=== PATIENT | male | born 1950 | race Caucasian/White ===

== ENCOUNTER → 2022-05-10 06:16 | Outpatient (CLI) | payer MEDICARE, SELFPAY ==
--- NOTE | 2022-05-10 06:17 | NM_ITS ---
APPROVED REPORT Exam: Nuclear Stress Test Indication: short of breath Patient Location: Outpatient Stress Tech: Irina Smith CO Tech:RACIEL Suero RT(R)(N) Ht: 6 ft 0 in Wt: 270 lbs HR: 78 bpm BP: 125/88 mmHg BSA: 2.42 m2 TID: 1.02 History: short of breath Procedure: Patient received a 0.4 mg of intravenous Lexiscan, resting heart rate 78 bpm, resting blood pressure 125/88 mmHg, with Lexiscan maximum heart rate achived was 93 bpm which is Less than 85 % of the maximum predicted heart rate and blood pressure was 125/88 mmHg. With Lexiscan, patient denied any complaint of chest pain. The patient was unable to lay on his belly for prone images. Electrocardiogram Resting electrocardiogram shows sinus rhythm nonspecific ST-T changes, with Lexiscan there is less than 1.[address] segment depression noted from the baseline EKG. The EKG portion of the Lexiscan is nondiagnostic. Cardiac Stress and Resting SPECT Images: Cardiac Stress and Resting SPECT images were obtained using technetium 99m Myoview 31.2 mCi stress and 10.10 mCi at rest. Gated SPECT analysis of segmental wall motion and calculation of the ejection fraction also done. Cardiac stress and rest SPECT images show reversible ischemia involving the anteroseptal and inferolateral wall, computer derived ejection fraction is 64% with no regional wall motion abnormality, right ventricle is normal size and contractility. Conclusion: 1. The EKG portion of the Lexiscan is nondiagnostic. 2. Scintigraphic evidence of reversible ischemia involving the anteroseptal and inferolateral wall, computer derived ejection fraction is 64% with no regional wall motion abnormality, right ventricle is normal size and contractility. 3. Abnormal Lexiscan Myoview study. Electronically signed by : Pablito Reynolds MD 05/11/2022 09:37:25
--- NOTE | 2022-05-10 06:17 | CA_ITS ---
APPROVED REPORT EXAM: Comprehensive 2D, Doppler, and color-flow Echocardiogram Oil Well Service Operator: Acacia Arevalo RDCS Ht: 6 ft 0 in Wt: 268lbs BSA: 2.41 BP: 143/89 mmHg Indications: soa,abn ekg,obesity,fatigue TDS SECONDARY TO BODY HABITUS DIFFICULT TO IMAGE RIGHT HEART 2D Dimensions LVOT 2.39 cm (M/F) 1.5-2.5 M-Mode Dimensions RVDd 1.48 cm (0.9-2.6) LA Diam 3.32 cm (1.9-4.0) LVDd 4.28 cm (3.5-5.7) Ao Diam 4.73 cm (2.0-3.7) LVDs 2.97 cm (3.5-5.7) IVSd 1.53 cm (0.6-1.1) PWd 1.32 cm (0.6-1.1) EF (Teich) 58.40% FS 30.60% EDV (Teich) 82.20 mL ESV (Teich) 34.20 mL LV Diastology E Decel Time 227.00 (160-240 msec) E/A Ratio 0.7 MED E' 5.30 (< 7 cm/sec) E'/MED E' Ratio 13.36 (>14) LAT E' 7.30 (<10 cm/sec) E/LAT E' Ratio 9.70 (>14) Mitral Valve MV E Max Chidi. 71.00 (40-130 cm/s) MV A Velocity 95.00 (40-130 cm/s) E/A Ratio 0.75 MV Decel. Time 227.00 (160-240 ms) MV PHT 66.00 ms Left Ventricle Left atrium is mildly enlarged, left ventricle is normal size, mild concentric left ventricular hypertrophy, estimated ejection fraction 55% with no regional wall motion abnormality, grade 1 diastolic dysfunction seen without tissue Doppler evidence of raise left atrial pressure. Right Ventricle Right atrium and right ventricle are mildly enlarged with normal contractility. Aortic Valve Aortic valve is minimally thickened and fibrosed there is no aortic stenosis or aortic insufficiency. Mitral Valve Mitral valve grossly normal, there is trace mitral regurgitation. Tricuspid Valve Tricuspid valve grossly normal, there is trace tricuspid regurgitation, tricuspid regurgitation jet velocity is inadequate for calculation of the right ventricular systolic pressure. Pulmonic Valve Pulmonic valve is poorly visualized. Great Vessels Aortic root is normal size. Inferior vena cava is poorly visualized. Pericardium No significant pericardial effusion noted. Conclusion 1. Mild biatrial enlargement, normal left ventricular size, mild concentric left ventricular hypertrophy, estimated ejection fraction 55% with no regional wall motion abnormality, grade 1 diastolic dysfunction seen without tissue Doppler evidence of raise left atrial pressure. 2. Trace mitral and tricuspid regurgitation. 3. No significant pericardial effusion noted. 4. Inferior vena cava is poorly visualized. Electronically signed by : Pablito Reynolds MD 05/10/2022 06:56:48
--- NOTE | 2022-05-10 06:17 | CA_ITS ---
APPROVED REPORT Exam: Pharmacologic Technologist: Irina Smith, Ht: 6 ft 0 in Wt: 268 lbs BSA: 2.41 m2 HR: 77 bpm BP: 125/88 mmHg Rhythm: NSR, right axis deviation, cannot R/O old inferior [place] Medical History Medical History: HTN Medications: Omeprazole,,,,, Irbesartan,,,,, Aspirin,,,,, Metoprolol,,,,, Pravastatin,,,,, Gabapentin,,,,, Allopurinol,,,,, HCTZ,,,,, TAMSULOSIN,,,,, MeLOXICAM,,,,, Potassium,,,,, Sertaline,,,,, Cardiac Risk Factors: HTN Stress Test Details Test: LEXISCAN HR Resting HR: 78 bpm Max Heart Rate (APMHR): 150.141926 bpm Max HR Achieved: 93 bpm Target HR (85% APMHR): 127.094816 bpm % of APMHR: 62.00 Recovery HR: 84 bpm BP Resting BP: 125/88 mmHg Max BP: 125/88 mmHg Recovery BP: 123.0/72.0 mmHg ECG Resting ECG: NSR, right axis deviation, cannot R/O old inferior [place] Clinical Exercise duration: 04:00 min Highest Stage Achieved: Exercise capacity: 1.0 METs Stress ECG Conclusion During lexiscan pt experinced very mild head discomfort. No CP noted. Rare PAC. No significant ST changes. Unremarkable lexiscan stress. Myoview images reported separately. Electronically signed by : Pablito Reynolds MD 05/11/2022 09:34:45
== END ==
PROVIDERS: PCP Family Medicine; Visit Provider Nurse Practitioner
DX: R06.00 Dyspnea, unspecified (principal); R06.01 Orthopnea; R94.31 Abnormal electrocardiogram [ECG] [EKG]; I71.40 Abdominal aortic aneurysm, without rupture, unspecified
CPT/HCPCS: 78452; 93017; 93306; A9502; J2785

== ENCOUNTER → 2022-05-15 07:32 | Outpatient (CLI) | payer MEDICARE, SELFPAY ==
--- NOTE | 2022-05-15 07:32 | CT_ITS ---
FINAL REPORT TECHNIQUE: Postcontrast axial images of the chest were performed in a CTA protocol. The study was performed with techniques to keep radiation dose as low as reasonably achievable, (ALARA). Individual dose reduction techniques using automated exposure control or adjustment of mA and/or kV according to the patient's size were employed. CLINICAL HISTORY: hx of aneurysm, CHEST PAIN FINDINGS: The heart is normal in size. There are densely calcified coronary arteries. No adenopathy is identified. No pleural or pericardial effusion is identified. The thoracic aorta is normal in caliber with no focal aneurysm or dissection identified. No lung infiltrate or mass is identified. The images of the upper abdomen are unremarkable. The gallbladder is not identified. IMPRESSION: No PE or dissection. Densely calcified coronary arteries. Reviewed, Interpreted and Dictated by Bertrand Ellison MD Transcribed by Kiya Neri Authenticated and . [facility]
--- NOTE | 2022-05-15 07:32 | US_ITS ---
FINAL REPORT CLINICAL HISTORY: AAA FINDINGS: Sonographic images were obtained of the abdominal aorta. The abdominal aorta measures up to 1.9 cm in greatest dimensions. The common iliac arteries are within normal limits. IMPRESSION: No evidence of aneurysm. Reviewed, Interpreted and Dictated by Bertrand Ellison MD Transcribed by Sohan Herring Authenticated and [facility]
[2022-05-15 08:58] LABS: Blood Urea Nitrogen 22 mg/dl (9-20); Estimated Glomerular Filt Rate 60 ml/min (>60); GFR (African American) 72 ML/MIN (>60)
== END ==
PROVIDERS: Nurse Practitioner; PCP Family Medicine; Visit Provider Nurse Practitioner Family
DX: I71.40 Abdominal aortic aneurysm, without rupture, unspecified (principal); R06.00 Dyspnea, unspecified; R06.01 Orthopnea; R94.31 Abnormal electrocardiogram [ECG] [EKG]
CPT/HCPCS: 36415; 71275; 76770; 82565; 84520; Q9967

== ENCOUNTER → 2022-05-17 12:02 | Outpatient (CLI) | payer MEDICARE, SELFPAY ==
[2022-05-17 12:42] LABS: Basophils % 0.4 % (0.1-2.0); Eosinophils # 0.6 K/mm3 (0.0-0.4); Eosinophils % 6.1 % (0.1-12.0); Hematocrit 43.6 % (42.0-52.0); Hemoglobin 13.9 g/dL (14.1-18.0); Lymphocytes # 1.9 K/mm3 (0.7-4.5); Lymphocytes % 20.1 % (10-50); Mean Corpuscular HGB Conc 31.9 g/dL (31.8-35.4); Mean Corpuscular Hemoglobin 31.8 pg (27.0-31.2); Mean Corpuscular Volume 99.7 fl (80-94); Mean Platelet Volume 11.2 fl (7.4-10.4); Monocytes # 0.5 K/mm3 (0.1-1.0); Monocytes % 5.3 % (1.7-9.3); Neutrophils # 6.5 K/mm3 (1.8-7.8); Neutrophils % 68.1 % (37.0-80.0); Platelet Count 195 K/mm3 (142-424); Red Blood Count 4.37 M/mm3 (4.60-6.20); Red Cell Distribution Width 14.7 % (11.5-17.5); White Blood Count 9.5 K/mm3 (4.8-10.8)
[2022-05-17 13:15] LABS: Alanine Aminotransferase 20 U/L (12-78); Albumin Level 4.3 g/dl (3.5-5.0); Alkaline Phosphatase 102 U/L (38-126); Anion Gap 14.8 mEq/L (5-15); Aspartate Amino Transferase 29 U/L (17-59); Bilirubin,Direct 0.2 mg/dl (0.0-0.4); Bilirubin,Indirect 0.2 mg/dL (0.0-0.9); Bilirubin,Total 0.4 mg/dl (0.2-1.3); Bilirubin,Unconjugated 0.3 mg/dL (0.0-1.1); Blood Urea Nitrogen 30 mg/dl (9-20); Calcium 9.7 mg/dl (8.4-10.2); Carbon Dioxide 28 mmol/L (22.0-30.0); Chloride 101 mmol/L (98-107); Chol/HDL Ratio 3.7 (1-3.5); Cholesterol 130 mg/dl (140-200); Estimated Glomerular Filt Rate 50 ml/min (>60); GFR (African American) 61 ML/MIN (>60); Glucose 94 mg/dl (74-100); HDL Cholesterol 35 mg/dl (40-60); Potassium 4.8 mmoL/L (3.5-5.1); Sodium 139 mmol/L (136-145); Total Protein,Serum 6.6 g/dl (6.3-8.2); Triglycerides 183 mg/dl (30-150); VLDL Cholesterol 37 mg/dL (0-40)
[2022-05-17 13:26] LABS: Direct LDL Cholesterol 61.91 mg/dL (100-129)
== END ==
PROVIDERS: PCP Family Medicine; Visit Provider Nurse Practitioner
DX: I10 Essential (primary) hypertension (principal); R94.31 Abnormal electrocardiogram [ECG] [EKG]; E78.5 Hyperlipidemia, unspecified
CPT/HCPCS: 36415; 80048; 80061; 80076; 85025

== ENCOUNTER → 2022-06-06 10:17 | Outpatient (CLI) | payer MEDICARE, SELFPAY ==
[2022-06-06 11:23] LABS: Anion Gap 12.6 mEq/L (5-15); Blood Urea Nitrogen 20 mg/dl (9-20); Calcium 9.8 mg/dl (8.4-10.2); Carbon Dioxide 26 mmol/L (22.0-30.0); Chloride 106 mmol/L (98-107); Estimated Glomerular Filt Rate 55 ml/min (>60); GFR (African American) 66 ML/MIN (>60); Glucose 92 mg/dl (74-100); Potassium 4.6 mmoL/L (3.5-5.1); Sodium 140 mmol/L (136-145)
== END ==
PROVIDERS: PCP Family Medicine; Visit Provider Nurse Practitioner Family
DX: E78.5 Hyperlipidemia, unspecified (principal); I10 Essential (primary) hypertension; I50.30 Unspecified diastolic (congestive) heart failure
CPT/HCPCS: 36415; 80048

== ENCOUNTER 2022-07-16 10:56 | Observation (INO) | payer MEDICARE, SELFPAY ==
[2022-07-16] VITALS (17 sets, daily range): BP systolic 86–125; BP diastolic 47–82; PULSE 65–112; RESP 16–20; TEMP 36.8–37; O2SAT 91–97; BMI 35.9; BMI 35.2
--- NOTE | 2022-07-16 07:01 | IR_ITS ---
APPROVED REPORT Patient Location: Outpatient Rugby Union Footballer: RACIEL Reyes RT (R) PROCEDURES Selective coronary angiogram Drug-eluting stent deployment to the proximal LAD Drug-eluting stent deployment to the ostial proximal left main artery in a manner noncontiguous with the LAD stent INDICATION High risk abnormal Myoview, Coronary artery disease, Angina pectoris Informed consent was obtained prior to the procedure. COMPLICATIONS None Estimated Blood Loss: Less than 10 ML TECHNIQUE One percent lidocaine used to anesthetize the right anterior aspect of the wrist. The right radial artery was accessed via the Seldinger technique. A 6 Martiniquais sheath was placed in the right radial artery. 2.5 mg of verapamil, 800 mcg of nitroglycerin, 1mg Lidocaine and 5000 U Heparin were given through the arterial sheath. The papa catheter was also used to perform selective coronary angiography. At the end of the diagnostic angiogram therapeutic heparin was administered giving a therapeutic ACT and an EBU 4 guide catheter was placed in the left main artery followed by a Choice PT extra-support wire down the LAD. A 3 mm x 12 mm balloon was deployed at 20 tiffany in the proximal ID reducing the heavily calcified stenosis. A 4 mm x 15 mm resolute Jhon[place] stent was deployed at 20 tiffany reducing the stenosis. A 5 mm x 12 mm resolute [place] stent was placed in the proximal left main artery however this did not quite cover the ostial segment therefore an additional 5 mm x 12 mm resolute [place] stent was placed proximal to the first 5 mm stent yet still overlapping at this time hanging out into the left coronary cusp. The stent was deployed at 24 tiffany. The balloon was then advanced into the 4 mm stent and deployed at 20 tiffany to post dilate. At the end of the procedure LOKESH-3 flow was present down the LAD and left main artery. The apparatus was removed the sheath was removed and hemostasis was achieved using TR banding patient was transferred to the postop putting in stable addition ANGIOGRAPHIC RESULTS The left main artery Is an ostial 60 to 70% stenosis The left anterior descending artery Has a proximal mild vascular ectasia with a concentric 90% stenosis. The mid segment then has diffuse 20% stenoses with mild vascular ectasia throughout The circumflex artery Nondominant with mild vascular ectasia throughout with no stenosis greater than 10 to 20% The right coronary artery Large and dominant with an ostial 50 to 60% stenosis The JIMENEZ ventriculogram reveals Not performed The left ventricular end-diastolic pressure Not measured IMPRESSION Critical proximal LAD disease as described above with successful stenting reducing the critical disease to 0% with 1 drug-eluting stent Severe ostial left main disease with successful stenting reducing the severe stenosis to 0% with 2 overlapping drug-eluting stents Persistent moderate stenosis in the right coronary PLAN 1. Dual antiplatelet therapy 2. Risk factor modification 3. Cardiac rehabilitation 4. Patient has creatinine of 1.7 therefore should remain in the hospital overnight for IV fluids with a recheck chemistry panel in the morning. He has an increased risk for contrast nephropathy 5. Medical management for the right coronary 6. LDL less than 55 to be achieved with high intensity statin 7. Avoidance of tobacco products Electronically signed by : Leo Oglesby MD 07/16/2022 11:16:10
[2022-07-16 09:12] LABS: Basophils # 0.1 K/mm3 (0-0.2); Basophils % 0.4 % (0.1-2.0); Eosinophils # 0.2 K/mm3 (0.0-0.4); Eosinophils % 1.7 % (0.1-12.0); Hematocrit 39.3 % (42.0-52.0); Hemoglobin 13.4 g/dL (14.1-18.0); Lymphocytes # 0.7 K/mm3 (0.7-4.5); Lymphocytes % 5.8 % (10-50); Mean Corpuscular HGB Conc 33.9 g/dL (31.8-35.4); Mean Corpuscular Hemoglobin 32.3 pg (27.0-31.2); Mean Corpuscular Volume 95.1 fl (80-94); Mean Platelet Volume 9.9 fl (7.4-10.4); Monocytes # 0.4 K/mm3 (0.1-1.0); Monocytes % 3.1 % (1.7-9.3); Neutrophils # 11.2 K/mm3 (1.8-7.8); Platelet Count 224 K/mm3 (142-424); Red Blood Count 4.14 M/mm3 (4.60-6.20); Red Cell Distribution Width 13.5 % (11.5-17.5); White Blood Count 12.6 K/mm3 (4.8-10.8)
[2022-07-16 09:13] LABS: MANUAL DIFFERENTIAL MANUAL DIFFERENTIAL (MANUAL DIFF)
[2022-07-16 09:14] LABS: Chloride 103 mmol/L (98-107); Potassium 4.3 mmoL/L (3.5-5.1); Sodium 137 mmol/L (136-145)
[2022-07-16 09:17] LABS: Anion Gap 15.3 mEq/L (5-15); Blood Urea Nitrogen 25 mg/dl (9-20); Carbon Dioxide 23 mmol/L (22.0-30.0); Creatinine Clearance Estimated 69 mL/min (50-200); Estimated Glomerular Filt Rate 40 ml/min (>60); GFR (African American) 48 ML/MIN (>60)
[2022-07-16 09:18] LABS: Glucose 143 mg/dl (74-100)
[2022-07-16 09:33] LABS: Lymphocytes % 8 % (10-50); Monocytes % 3 % (2-9); Neutrophils % 89 % (42-76); Platelet Estimate Normal; RBC Morphology Normal; Total Cells Counted 100
[2022-07-16 10:56] LABS: CATHL Activated Clotting Time 264 SEC (74-125)
--- NOTE | 2022-07-16 13:52 | PC.NURSE ---
patient arrived at 13:40 by stretcher from label stitcher
--- NOTE | 2022-07-16 14:59 | HMH.PHAINT1 ---
Pharmacy Intervention Comments: Home medications verified via external fill history and list provided by patient. -Alannah Rawls, PharmD Candidate 2022
[2022-07-16 15:19] LABS: Coronavirus 19, PCR Not Detected (NotDetected); Influenza A, PCR Not Detected (NotDetected); Influenza B, PCR Not Detected (NotDetected)
--- NOTE | 2022-07-16 16:49 | EXP.HP ---
History of Present Illness *Admission Date: 07/16/22 *Reason for visit:: RODRIGO, status post left heart cath *History of present illness: 72-year-old male with prolonged shortness of breath, exertional dyspnea (improves at rest), fatigue. Has been noticing this for several months. Denies any chest pain, tightness, pressure. Has also noticed swelling in his feet throughout the course of the day. Dizziness when he first gets up out of bed. Came in for elective heart cath after having an abnormal stress test. Left heart cath performed today with identification of critical proximal LAD disease and severe ostial left main disease. Received a total of 3 stents with stenosis reduction to 0%. Noted to have a creatinine 1.7 over on morning labs. Will admit patient overnight for monitoring, IV fluid hydration, and repeat labs in the morning. [facility] Disclaimer: The information contained in this section may have been updated after the patient was seen, as this information can be updated by other users. Medical History Abdominal aortic aneurysm Abdominal aortic aneurysm (AAA) Abnormal cardiovascular stress test Abnormal electrocardiogram [ECG] [EKG] Atypical angina Coronary artery calcification Gout Hernia HTN (hypertension) Surgical History History of bilateral knee replacement History of cholecystectomy Hx of appendectomy Family History Heart attack Unknown Cancer Mother Social History Smoking Status: Never smoker alcohol intake: never current occupational status: retired Travel in the last 8 weeks: Inside the [place] Review of Systems Review of Systems Review of systems (narrative): Review of systems Meds Home Medications and Allergies Home Medications Medication Instructions Recorded Confirmed Type allopurinol 100 mg tablet 100 mg PO BID Gout 04/26/22 07/16/22 History gabapentin 300 mg capsule 300 mg PO TID Pain 04/26/22 07/16/22 History hydrochlorothiazide 25 mg tablet 25 mg PO DAILY High blood pressure 04/26/22 07/16/22 History irbesartan 300 mg tablet 300 mg PO DAILY High blood pressure 04/26/22 07/16/22 History meloxicam 15 mg tablet 15 mg PO DAILY Pain 04/26/22 07/16/22 History metoprolol succinate 25 mg 25 mg PO DAILY Heart disease 04/26/22 07/16/22 History tablet,extended release 24 hr omeprazole 40 mg capsule,delayed 40 mg PO DAILY Acid reflux 04/26/22 07/16/22 History release potassium chloride 20 mEq 20 meq PO BID Supplement 04/26/22 07/16/22 History tablet,extended release(part/cryst) (Klor-Con M) pravastatin 40 mg tablet 40 mg PO DAILY Cholesterol 04/26/22 07/16/22 History sertraline 100 mg tablet 100 mg PO DAILY Mood 04/26/22 07/16/22 History tamsulosin 0.4 mg capsule 0.4 mg PO DAILY Prostate 04/26/22 07/16/22 History trazodone 100 mg tablet 100 mg PO HS Sleep 04/26/22 07/16/22 History aspirin 81 mg tablet,delayed 81 mg PO DAILY Blood thinner 07/16/22 07/16/22 History release furosemide 40 mg tablet 40 mg PO DAILY Fluid 07/16/22 07/16/22 History New Prescriptions to Start Prescriptions: Allergies Allergy/AdvReac Type Severity Reaction Status Date / Time No Known Allergies Allergy Verified 07/16/22 13:55 Exam Data for Last 24 hours Vital signs and Labs for Last 24 Hours: Temp Pulse Resp BP Pulse Ox 98.2 F 72 19 125/69 94 L 07/16/22 15:56 07/16/22 15:56 07/16/22 15:56 07/16/22 15:56 07/16/22 15:56 Laboratory Results - last 24 hr 07/16/22 08:51: WBC 12.6 H, RBC 4.14 L, Hgb 13.4 L, Hct 39.3 L, MCV 95.1 H, MCH 32.3 H, MCHC 33.9, RDW 13.5, Plt Count 224, MPV 9.9, Neut % (Auto) 89.0 H, Lymph % (Auto) 5.8 L, [place] % (Auto) 3.1, Eos % (Auto) 1.7, Baso % (Auto) 0.4, Neut # (Auto) 11.2 H, Lymph # (Auto) 0.7, [place] # (Auto) 0.4, Eos # (Auto) 0.2
[2022-07-17] VITALS: BP 97/58; PULSE 70; RESP 16; TEMP 36.7; O2SAT 100
[2022-07-17 04:00] VITALS: BP 117/62; PULSE 64; RESP 16; TEMP 36.7; O2SAT 98; BMI 34.9
--- NOTE | 2022-07-17 06:54 | PC.NURSE ---
Pt did not voice any c/o t/o night. Tegaderm to right radial site CDI. Pt ambulating to BR with walker and 1x assist. at bedside. Call light within reach.
--- NOTE | 2022-07-17 07:35 | EXP.PN ---
Subjective *Date: 07/17/22 *Time: 07:35 Interval history: Date of service July 17, 2022 Nursing staff report that the patient remains afebrile with stable vital signs and saturating appropriately on room air. His morning labs are pending. Exam Data for Last 24 hours Vital signs and Labs for Last 24 Hours: Temp Pulse Resp BP Pulse Ox 98.1 F 64 16 117/62 98 07/17/22 04:00 07/17/22 04:00 07/17/22 04:00 07/17/22 04:00 07/17/22 04:00 Laboratory Results - last 24 hr 07/16/22 08:51: WBC 12.6 H, RBC 4.14 L, Hgb 13.4 L, Hct 39.3 L, MCV 95.1 H, MCH 32.3 H, MCHC 33.9, RDW 13.5, Plt Count 224, MPV 9.9, Neut % (Auto) 89.0 H, Lymph % (Auto) 5.8 L, [place] % (Auto) 3.1, Eos % (Auto) 1.7, Baso % (Auto) 0.4, Neut # (Auto) 11.2 H, Lymph # (Auto) 0.7, [place] # (Auto) 0.4, Eos # (Auto) 0.2, Baso # (Auto) 0.1, Total Counted 100, Neutrophils % (Manual) 89 H, Lymphocytes % (Manual) 8 L, Monocytes % (Manual) 3, Platelet Estimate Normal, RBC Morphology Normal 07/16/22 08:51: Sodium 137, Potassium 4.3, Chloride 103, Carbon Dioxide 23, Anion Gap 15.3 H, BUN 25 H, Creatinine 1.70 H, Estimated Creat Clear 69, Estimated GFR 40 L, Est GFR ( Amer) 48 L, Glucose 143 H, Calcium 9.0 07/16/22 11:16: Activated Clotting Time 264 H* 07/16/22 15:00: SARS-CoV-2 (PCR) Not detected, Influenza A Untype (PCR) Not detected, Influenza Type B (PCR) Not detected I & O for Last 24 hours: Intake & Output 07/14/22 07/15/22 07/16/22 07/17/22 23:59 23:59 23:59 23:59 Intake Total 280 / 280 Output Total 304 / 304 0 / 0 Balance -24 / -24 0 / 0 Weight 117.679 kg 117.072 kg Constitutional Constitutional: no acute distress *Routine HEENT Exam Head: Present normocephalic Eye: Present EOMI and PERRL ENT: Present mucous membranes moist *Routine Neck Exam Neck: Present supple; Absent lymphadenopathy *Routine Respiratory Exam Respiratory: Present CTA bilaterally *Routine Cardiovascular Exam Cardiovascular: Present RRR *Routine Abdominal Exam Abdominal: Present soft and normoactive bowel sounds; Absent tenderness *Routine Extremities Exam Extremities: Absent cyanosis, clubbing or edema *Routine Skin Exam Skin: Present warm; Absent rash *Routine Neurological Exam Neurological: Present alert and oriented X3 Assessment and Plan *Assessment and plan (1) RODRIGO (acute kidney injury): Status: Acute Category: Medical Code(s): N17.9 - Acute kidney failure, unspecified (2) Status post left heart catheterization: Status: Acute Category: Medical Code(s): Z98.890 - Other specified postprocedural states (3) Coronary artery calcification: Status: Acute Category: Medical Code(s): I25.10 - Atherosclerotic heart disease of [place] coronary artery without angina pectoris; I25.84 - Coronary atherosclerosis due to calcified coronary lesion (4) HLD (hyperlipidemia): Status: Acute Qualifiers: Hyperlipidemia type: mixed hyperlipidemia Qualified Code(s): E78.2 - Mixed hyperlipidemia Category: Medical Code(s): E78.5 - Hyperlipidemia, unspecified (5) Atypical angina: Status: Acute Category: Medical Code(s): I20.8 - Other forms of angina pectoris (6) HTN (hypertension): Status: Acute Category: Medical Code(s): I10 - Essential (primary) hypertension (7) Diastolic CHF: Status: Acute Qualifiers: Heart failure chronicity: chronic Qualified Code(s): I50.32 - Chronic diastolic (congestive) heart failure Category: Medical Code(s): I50.30 - Unspecified diastolic (congestive) heart failure Plan 72-year-old male with left heart cath today. Noted to have RODRIGO. Admitted to medicine for monitoring overnight. Problems addressed as follows CAD Hypertension HLD -Status post stenting as above. Tolerated procedure well. -Cardiology consulted, appreciate their recommendations. Discussed case with cardiology, patient zack
[2022-07-17 07:47] LABS: Basophils % 0.5 % (0.1-2.0); Eosinophils # 0.4 K/mm3 (0.0-0.4); Eosinophils % 5.5 % (0.1-12.0); Hematocrit 36.3 % (42.0-52.0); Hemoglobin 12.5 g/dL (14.1-18.0); Lymphocytes # 1.7 K/mm3 (0.7-4.5); Lymphocytes % 21.6 % (10-50); Mean Corpuscular HGB Conc 34.5 g/dL (31.8-35.4); Mean Corpuscular Hemoglobin 32.3 pg (27.0-31.2); Mean Corpuscular Volume 93.6 fl (80-94); Mean Platelet Volume 9.8 fl (7.4-10.4); Monocytes # 0.4 K/mm3 (0.1-1.0); Monocytes % 4.5 % (1.7-9.3); Neutrophils # 5.4 K/mm3 (1.8-7.8); Neutrophils % 67.8 % (37.0-80.0); Platelet Count 185 K/mm3 (142-424); Red Blood Count 3.88 M/mm3 (4.60-6.20); Red Cell Distribution Width 13.5 % (11.5-17.5)
[2022-07-17 07:51] LABS: Anion Gap 13.9 mEq/L (5-15); Blood Urea Nitrogen 18 mg/dl (9-20); Calcium 8.8 mg/dl (8.4-10.2); Carbon Dioxide 22 mmol/L (22.0-30.0); Chloride 107 mmol/L (98-107); Creatinine Clearance Estimated 95 mL/min (50-200); Estimated Glomerular Filt Rate 60 ml/min (>60); GFR (African American) 72 ML/MIN (>60); Glucose 91 mg/dl (74-100); Potassium 3.9 mmoL/L (3.5-5.1); Sodium 139 mmol/L (136-145)
[2022-07-17 08:00] VITALS: BP 131/68; PULSE 66; PULSE 87; RESP 18; TEMP 36.7; O2SAT 100
--- NOTE | 2022-07-17 11:16 | DIET.NUTRFU ---
Reviewed cardiac diet handouts prior to discharge. Patient's is present who does the majority of cooking and was concerned about what changes needed to be made to provider during rounds. During instruction indicated patient likes to add salt to his foods and likes biscuits and gravy and other high fat items. RD encouraged patient to space out his high fat items and utilize his sodium allowance of 2000mg throughout the day
--- NOTE | 2022-07-17 11:54 | EXP.DC.SUM ---
General Admission date:: 07/16/22 Discharge date: 07/17/22 HPI HPI HPI: 72-year-old male with prolonged shortness of breath, exertional dyspnea (improves at rest), fatigue. Has been noticing this for several months. Denies any chest pain, tightness, pressure. Has also noticed swelling in his feet throughout the course of the day. Dizziness when he first gets up out of bed. Came in for elective heart cath after having an abnormal stress test. Left heart cath performed today with identification of critical proximal LAD disease and severe ostial left main disease. Received a total of 3 stents with stenosis reduction to 0%. Noted to have a creatinine 1.7 over on morning labs. Will admit patient overnight for monitoring, IV fluid hydration, and repeat labs in the morning. Hospital Course Hospital Course Hospital Course: The patient is admitted to the medical floor with cardiology consultation. He is provided IV fluid resuscitation and ACC guideline directed therapy for his coronary artery disease and recent left heart catheterization with drug-eluting stent deployment. The patient tolerated his IV fluid resuscitation well and his next day creatinine returned to baseline. He identified improvement and inquired about discharge home. We will discharge home with dual antiplatelet therapy, statin therapy and have advised him to discontinue his thiazide diuretic, Mobic anti-inflammatory and follow-up with his PCP Dr. Calzada to have further discussions concerning medication effects on renal function. He is to maintain a blood pressure diary for his PCP to evaluate. 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 Outpatient cardiac rehab has been requested. Exam Data for Last 24 hours Vital signs and Labs for Last 24 Hours: Temp Pulse Resp BP Pulse Ox 98.0 F 87 18 131/68 100 07/17/22 08:00 07/17/22 08:00 07/17/22 08:00 07/17/22 08:00 07/17/22 08:00 Laboratory Results - last 24 hr 07/16/22 15:00: SARS-CoV-2 (PCR) Not detected, Influenza A Untype (PCR) Not detected, Influenza Type B (PCR) Not detected 07/17/22 07:28: Magnesium 2.0 07/17/22 07:28: WBC 8.0 D, RBC 3.88 L, Hgb 12.5 L, Hct 36.3 L, MCV 93.6, MCH 32.3 H, MCHC 34.5, RDW 13.5, Plt Count 185, MPV 9.8, Neut % (Auto) 67.8, Lymph % (Auto) 21.6, [place] % (Auto) 4.5, Eos % (Auto) 5.5, Baso % (Auto) 0.5, Neut # (Auto) 5.4, Lymph # (Auto) 1.7, [place] # (Auto) 0.4, Eos # (Auto) 0.4, Baso # (Auto) 0.0 07/17/22 07:28: Sodium 139, Potassium 3.9, Chloride 107, Carbon Dioxide 22, Anion Gap 13.9, BUN 18 D, Creatinine 1.20 D, Estimated Creat Clear 95, Estimated GFR 60, Est GFR ( Amer) 72 D, Glucose 91 D, Calcium 8.8 I & O for Last 24 hours: Intake & Output 07/14/22 07/15/22 07/16/22 07/17/22 23:59 23:59 23:59 23:59 Intake Total 280 / 280 480 / 480 Output Total 304 / 304 0 / 0 Balance -24 / -24 480 / 480 Weight 117.679 kg 117.072 kg Constitutional Constitutional: no acute distress *Routine HEENT Exam Head: Present normocephalic Eye: Present EOMI and PERRL ENT: Present mucous membranes moist *Routine Neck Exam Neck: Present supple; Absent lymphadenopathy *Routine Respiratory Exam Respiratory: Present CTA bilaterally *Routine Cardiovascular Exam Cardiovascular: Present RRR *Routine Abdominal Exam Abdominal: Present soft and normoactive bowel sounds; Absent tenderness *Routine Extremities Exam Extremities: Absent cyanosis, clubbing or edema *Routine Skin Exam Skin: Present warm; Absent rash *Routine Neurological Exam Neurological: Present alert and oriented X3 Results Data Completed and Pending Labs on day of discharge: Labs from last 24 hours 07/17/22 07/17/22 07/17/22 07:28 07:28 07:28 WBC 8.0 D RBC 3.88 L Hgb 12.5 L Hct 36.3 L MCV 93.6 MCH 32.3 H MCHC 34.5 RDW 13.5 Plt Count 185 MPV 9.8 Neut % (Auto) 67.8 Lymph % (Auto) 21.6 [place] % (Auto) 4.5 Eos % (Auto) 5.5 Baso % (Auto)
--- NOTE | 2022-07-17 12:23 | P.CONPHA_ITS ---
PHA Almond Blancher Operator Discharge Med Forest Products Teacher: Milo Mitchell has received discharge medication counseling on the following medications: BRILINTA 90 MG BID ASPIRIN 81 MG DAILY IRBESARTAN 300 MG DAILY PRAVASTATIN 40 MG HS METOPROLOL SUCCINATE 25 MG DAILY
--- NOTE | 2022-07-18 13:01 | CARE MANAGER ---
Contacted patient's related to hospital discharge. They picked up his Brilinta. However, patient has had increase shortness of breath. He has appointment with PCP in the morning and will discuss with him. Denies any other questions or concerns. PRATIMA Jackson
== END 2022-07-17 12:11 | disposition home or self-care (01) ==
LOC: 2ND 10:57
PROVIDERS: Internal Medicine; Admitting Provider Internal Medicine Adolescent Medicine; PCP Family Medicine; Visit Provider Family Medicine
DX: I25.118 Atherosclerotic heart disease of native coronary artery with other forms of angina pectoris; I25.84 Coronary atherosclerosis due to calcified coronary lesion; R94.39 Abnormal result of other cardiovascular function study; N17.9 Acute kidney failure, unspecified; I11.0 Hypertensive heart disease with heart failure; I50.32 Chronic diastolic (congestive) heart failure; Z79.899 Other long term (current) drug therapy; Z20.822 Contact with and (suspected) exposure to COVID-19
CPT/HCPCS: G0378; 36415; 80048; 83735; 85007; 85025; 85347; 92928; 99152; 99153; C1725; C1769; C1876; C9600; C9803; J1644; Q9967; U0003; U0005

== ENCOUNTER 2022-07-27 12:53 | Observation (INO) | payer MEDICARE, SELFPAY ==
[2022-07-27] VITALS (10 sets, daily range): BP systolic 108–127; BP diastolic 67–92; PULSE 80–117; RESP 17–20; TEMP 36.4–36.7; O2SAT 94–98; BMI 34.3
--- NOTE | 2022-07-27 12:55 | CT_ITS ---
PROCEDURE INFORMATION: Exam: CTA Chest With Contrast Exam date and time: 07/27/2022 4:25 PM Age: 72 years old Clinical indication: Shortness of breath TECHNIQUE: Imaging protocol: Computed tomographic angiography of the chest with contrast. 3D rendering (Not supervised by radiologist): MIP and/or 3D reconstructed images were created by the technologist. Radiation optimization: All CT scans at this facility use at least one of these dose optimization techniques: automated exposure control; mA and/or kV adjustment per patient size (includes targeted exams where dose is matched to clinical indication); or iterative reconstruction. Contrast material: ISOVUE; Contrast volume: 50 ml; Contrast route: INTRAVENOUS (IV); Other protocol: This patient has received [address] and 0 known cardiac nuclear medicine studies in the 12 months prior to the current study. COMPARISON: CT ANGIO CHEST 05/15/2022 9:21 AM FINDINGS: Pulmonary arteries: Pulmonary vasculature is adequately opacified without filling defects or other evidence of acute pulmonary embolism. Aorta: Diffuse atherosclerotic changes with calcification of the thoracic aorta. No aortic aneurysm. Lungs: Lung volumes are chronically decreased likely due to body habitus. Mild hypoventilatory changes in the dependent portion of the lower lung fernandez. 5 mm circumscribed rounded pulmonary nodule right lower lobe, stable. Pleural spaces: Unremarkable. No pneumothorax. No pleural effusion. Heart: Heart is upper limits of normal in size. Extensive calcification of the coronary arteries. No significant pericardial effusion Lymph nodes: Unremarkable. No enlarged lymph nodes. Gallbladder and bile ducts: Small gallstones partially visualized. Kidneys and ureters: Small nonobstructing right renal stones. Bones/joints: Mild-moderate multilevel degenerative changes of the thoracic spine. No acute bony abnormalities. Soft tissues: Unremarkable. IMPRESSION: 1. Negative CT angiogram of the chest. No evidence of acute pulmonary embolism. 2. Extensive calcification of coronary arteries. 3. Chronically decreased lung volumes with mild hypoventilatory changes. 4. 5 mm pulmonary nodule right lower lobe. Recommend low-dose CT chest in 6 months for continued surveillance.
--- NOTE | 2022-07-27 12:57 | CA_ITS ---
APPROVED REPORT EXAM: Comprehensive 2D, Doppler, and color-flow Echocardiogram Global Logistics Analyst: Acacia Arevalo RDCS Ht: 6 ft 0 in Wt: 255lbs BSA: 2.36 BP: 104/75 mmHg Indications: SOA,AF,HTN TDS/TLS UNABLE TO IMAGE RT SIDED HEART 2D Dimensions Aortic Root 4.04 cm M: 3.1 - 3.7 LVOT 2.56 cm (M/F) 1.5-2.5 M-Mode Dimensions RVDd 2.20 cm (0.9-2.6) LA Diam 1.48 cm (1.9-4.0) LVDd 2.96 cm (3.5-5.7) Ao Diam 4.93 cm (2.0-3.7) LVDs 1.93 cm (3.5-5.7) IVSd 1.39 cm (0.6-1.1) PWd 1.57 cm (0.6-1.1) EF (Teich) 65.80% FS 34.80% EDV (Teich) 33.90 mL ESV (Teich) 11.60 mL LV Diastology E Decel Time 150.00 (160-240 msec) E/A Ratio 2.6 MED E' 6.50 (< 7 cm/sec) E'/MED E' Ratio 15.20 (>14) LAT E' 6.80 (<10 cm/sec) E/LAT E' Ratio 14.53 (>14) Mitral Valve MV E Max Chidi. 99.00 (40-130 cm/s) MV A Velocity 38.00 (40-130 cm/s) E/A Ratio 2.60 MV Decel. Time 150.00 (160-240 ms) MV PHT 44.00 ms Left Ventricle Technically difficult study because of the patient factors and poor acoustic windows. Left atrium is mildly enlarged, left ventricle is normal size, mild concentric left ventricular hypertrophy estimated ejection fraction is 55% with no obvious regional wall motion abnormality in the visualized segments. Diastolic parameters are inconclusive. Right Ventricle Right atrium and right ventricle are mildly enlarged with normal contractility. Aortic Valve Aortic valve is minimally thickened and fibrosed there is no aortic stenosis or aortic insufficiency. Mitral Valve Mitral valve leaflets are minimally thickened, there is mild mitral regurgitation. Tricuspid Valve Tricuspid valve is poorly visualized. There is no significant tricuspid regurgitation seen. Pulmonic Valve Pulmonic valve is poorly visualized. Great Vessels Aortic root and ascending aorta is qualitatively enlarged. Inferior vena cava is not visualized. Pericardium No significant pericardial effusion noted. Conclusion 1. Technically difficult study because of the patient factors and poor acoustic windows. 2. Biatrial enlargement, normal left ventricular size, estimated ejection fraction 55% with no obvious regional wall motion abnormality in the visualized segments. Diastolic parameters are inconclusive. 3. Mildly enlarged right ventricle with normal contractility. 4. Mild mitral regurgitation. 5. Ascending aorta and aortic root is enlarged, if clinically indicated CT scan of the chest is recommended with contrast to exclude presence of thoracic aneurysm. 6. No significant pericardial effusion noted. 7. Inferior vena cava is poorly visualized. Electronically signed by : Pablito Reynolds MD 07/27/2022 16:37:03
--- NOTE | 2022-07-27 13:11 | EXP.CARD.CON ---
History of Present Illness History of Present Illness Consult date: 07/27/22 Requesting physician: Bimal Jolley Consult reason: shortness of breath and hypotension Chief complaint: Shortness of air, hypotension Additional Medical History:: Significant past medical history Coronary artery disease-SAGRARIO to proximal LAD and ostial left main. Persistent moderate stenosis in RCA Hypertension AAA Hyperlipidemia Former smoker Recent RODRIGO-resolved Echo 05/2022 Conclusion 1.? Mild biatrial enlargement, normal left ventricular size, mild concentric left ventricular hypertrophy, estimated ejection fraction 55% with no regional wall motion abnormality, grade 1 diastolic dysfunction seen without tissue Doppler evidence of raise left atrial pressure. 2.? Trace mitral and tricuspid regurgitation. 3.? No significant pericardial effusion noted. 4.? Inferior vena cava is poorly visualized. Left heart cath 07/2022 IMPRESSION Critical proximal LAD disease as described above with successful stenting reducing the critical disease to 0% with 1 drug-eluting stent Severe ostial left main disease with successful stenting reducing the severe stenosis to 0% with 2 overlapping drug-eluting stents Persistent moderate stenosis in the right coronary PLAN 1. Dual antiplatelet therapy 2. Risk factor modification 3. Cardiac rehabilitation 4. Patient has creatinine of 1.7 therefore should remain in the hospital overnight for IV fluids with a recheck chemistry panel in the morning.? He has an increased risk for contrast nephropathy 5. Medical management for the right coronary 6. LDL less than 55 to be achieved with high intensity statin 7. Avoidance of tobacco products History of present illness: 72-year-old white male presented to cardiology office with complaints of increased shortness of breath for 2 to 3 days and low blood pressure. Patient had left heart cath on 07/16/2022 receiving SAGRARIO to proximal LAD and ostial left main. Persistent moderate stenosis in RCA was noted. reports patient was doing well after [facility] until Saturday when she noticed BP was running low with systolic being 117s. She got concerned so she called the cards office 2 days ago reporting low blood pressure readings and was advised to hold diuretics and blood pressure medication. She held metoprolol, irbesartan, and hctz. reports blood pressures continued to run on the low side and that patient became shortness of breath prompting office visit today. Upon presentation to cardiology office EKG shows sinus tach at a rate of 128. Patient denies any LE edema, orthopnea. Reports dry cough. Denies fever or chills. Patient was admitted for further evaluation. [facility] Disclaimer: The information contained in this section may have been updated after the patient was seen, as this information can be updated by other users. Medical History Abdominal aortic aneurysm Abdominal aortic aneurysm (AAA) Abnormal cardiovascular stress test Abnormal electrocardiogram [ECG] [EKG] RODRIGO (acute kidney injury) Atypical angina Coronary artery calcification Gout Hernia HTN (hypertension) Surgical History History of bilateral knee replacement History of cholecystectomy Hx of appendectomy Family History Mother Cancer Unknown Heart attack Social History (Updated 07/27/22 @ 13:49 by Jimena Padron, RN) Smoking Status: Never smoker alcohol intake: never current occupational status: retired Travel in the last 8 weeks: Inside the [place] Review of Systems Review of Systems Review of systems:: pertinent systems reviewed and negative unless documented below Constitutional Constitutional: Reports system reviewed and no additional complaints, except as documented *Cardiovascular Cardiovascular: Reports system reviewed and no add
[2022-07-27 13:31] LABS: Basophils # 0.1 K/mm3 (0-0.2); Basophils % 0.5 % (0.1-2.0); Eosinophils # 0.3 K/mm3 (0.0-0.4); Eosinophils % 2.5 % (0.1-12.0); Hematocrit 48.2 % (42.0-52.0); Lymphocytes # 1.6 K/mm3 (0.7-4.5); Lymphocytes % 13.9 % (10-50); Mean Corpuscular HGB Conc 33.1 g/dL (31.8-35.4); Mean Corpuscular Hemoglobin 32.5 pg (27.0-31.2); Mean Platelet Volume 10.5 fl (7.4-10.4); Monocytes # 0.7 K/mm3 (0.1-1.0); Monocytes % 5.8 % (1.7-9.3); Neutrophils % 77.2 % (37.0-80.0); Platelet Count 209 K/mm3 (142-424); Red Blood Count 4.92 M/mm3 (4.60-6.20); Red Cell Distribution Width 13.6 % (11.5-17.5); White Blood Count 11.7 K/mm3 (4.8-10.8)
[2022-07-27 13:36] LABS: Chloride 101 mmol/L (98-107); Potassium 4.4 mmoL/L (3.5-5.1); Sodium 139 mmol/L (136-145)
[2022-07-27 13:39] LABS: Alanine Aminotransferase 57 U/L (12-78); Albumin Level 5.2 g/dl (3.5-5.0); Albumin/Globulin Ratio 1.4 (1.1-1.8); Alkaline Phosphatase 226 U/L (38-126); Anion Gap 23.4 mEq/L (5-15); Aspartate Amino Transferase 44 U/L (17-59); Bilirubin,Total 1.2 mg/dl (0.2-1.3); Blood Urea Nitrogen 39 mg/dl (9-20); Calcium 10.3 mg/dl (8.4-10.2); Carbon Dioxide 19 mmol/L (22.0-30.0); Creatinine Clearance Estimated 56 mL/min (50-200); Estimated Glomerular Filt Rate 33 ml/min (>60); GFR (African American) 40 ML/MIN (>60); Globulin 3.8 g/dL (1.3-3.2); Glucose 144 mg/dl (74-100)
[2022-07-27 13:40] LABS: Magnesium 2.2 mg/dl (1.6-2.3)
--- NOTE | 2022-07-27 13:41 | EXP.HP ---
History of Present Illness *Admission Date: 07/27/22 *Reason for visit:: dyspnea, tachycardia, rodrigo *History of present illness: Mr. Stephen hidalgo 72-year-old gentleman who initially presented to cardiology office today with complaint of worsening shortness of breath for the past few days. He also has been having lower blood pressure for the past 2 to 3 days for which his blood pressure regimen was held at home. Of note, had a heart cath on 07/16 with drug-eluting stents to the proximal LAD and ostial left main. Patient denies chest pain but has been having a persistent dry cough for over a week now. Denies nausea, vomiting, diarrhea, confusion. Appears uncomfortable. presents with him today. Reports that blood pressures have been running low at home, systolics in the 100-110s. Additionally he is noted a fast heart rate for the past few days. Out of concern for possible worsening heart failure, respiratory infection, PE, cardiology consulted medicine for admission. Patient directly admitted to the hospital. On evaluation after arriving to the floor, patient is noted to have dry cough, and appear dyspneic. He is in sinus tach with a rate of approximately 115. He denies any lower extremity edema, orthopnea, bruising or bleeding. [facility] Disclaimer: The information contained in this section may have been updated after the patient was seen, as this information can be updated by other users. Medical History Abdominal aortic aneurysm Abdominal aortic aneurysm (AAA) Abnormal cardiovascular stress test Abnormal electrocardiogram [ECG] [EKG] RODRIGO (acute kidney injury) Atypical angina Coronary artery calcification Gout Hernia HTN (hypertension) Surgical History History of bilateral knee replacement History of cholecystectomy Hx of appendectomy Family History Heart attack Unknown Cancer Mother Social History Smoking Status: Never smoker alcohol intake: never current occupational status: retired Travel in the last 8 weeks: Inside the [place] Review of Systems Review of Systems Review of systems (narrative): 14 point review of systems performed, pertinent positives and negatives as per HPI *Neurologic Neurologic: Reports system reviewed and no additional complaints, except as documented and Denies confusion Psychiatric Psychiatric: Denies confusion Meds Home Medications and Allergies Home Medications Medication Instructions Recorded Confirmed Type allopurinol 100 mg tablet 100 mg PO BID Gout 04/26/22 07/27/22 History gabapentin 300 mg capsule 300 mg PO TID NEUROPATHY 04/26/22 07/27/22 History omeprazole 40 mg capsule,delayed 40 mg PO DAILY Acid reflux 04/26/22 07/27/22 History release potassium chloride 20 mEq 20 meq PO BID Supplement 04/26/22 07/27/22 History tablet,extended release(part/cryst) (Klor-Con M) pravastatin 40 mg tablet 40 mg PO HS Cholesterol 04/26/22 07/27/22 History sertraline 100 mg tablet 100 mg PO DAILY Mood 04/26/22 07/27/22 History tamsulosin 0.4 mg capsule 0.4 mg PO HS Prostate 04/26/22 07/27/22 History trazodone 100 mg tablet 100 - 200 mg PO HS Sleep 04/26/22 07/27/22 History aspirin 81 mg chewable tablet 81 mg PO DAILY CAD 07/27/22 07/27/22 History furosemide 40 mg tablet 40 mg PO DAILY Fluid 07/27/22 07/27/22 History irbesartan 300 mg tablet 300 mg PO DAILY High blood pressure 07/27/22 07/27/22 History metoprolol succinate 25 mg 25 mg PO DAILY High blood pressure 07/27/22 07/27/22 History tablet,extended release 24 hr omega-3 fatty acids-vitamin E 1 cap PO TID CAD 07/27/22 07/27/22 History 1,000 mg capsule ticagrelor 90 mg tablet (Brilinta) 90 mg PO BID Blood thinner 07/27/22 07/27/22 History New Prescriptions to Start Prescriptions: Allergies A
[2022-07-27 13:42] LABS: INR 1.06 (0.9-1.1); Prothrombin Time 11.4 seconds (10.1-12.5)
--- NOTE | 2022-07-27 13:45 | HMH.PHAINT1 ---
Pharmacy Intervention Comments: MEDICATION RECONCILIATION COMPLETE USING RX BOTTLES, EXTERNAL PHARMACY FILL HISTORY, AND LIST FROM RECENT HOSPITAL DISCHARGE.
[2022-07-27 13:47] LABS: Adenovirus,PCR Not Detected (NotDetected); Bordetella Pertussis Not Detected (NotDetected); Chlamydophila Pneumoniae, PCR Not Detected (NotDetected); Coronavirus 19, PCR Not Detected (NotDetected); Coronavirus 229E Not Detected (NotDetected); Coronavirus NL63 Not Detected (NotDetected); Coronavirus OC43 Not Detected (NotDetected); Coronovirus HKU1,PCR Not Detected (NotDetected); Human Metapneumovirus Not Detected (NotDetected); Influenza A, PCR Not Detected (NotDetected); Influenza AH1, 2009 Not Detected (NotDetected); Influenza AH1, PCR Not Detected (NotDetected); Influenza AH3,PCR Not Detected (NotDetected); Influenza B, PCR Not Detected (NotDetected); Mycoplasma Pneumoniae, PCR Not Detected (NotDetected); Parainfluenza 1, PCR Not Detected (NotDetected); Parainfluenza 2, PCR Not Detected (NotDetected); Parainfluenza 3, PCR Not Detected (NotDetected); Parainfluenza 4, PCR Not Detected (NotDetected); Respiratory Syncytial Virus Not Detected (NotDetected); Rhinovirus/Enterovirus Not Detected (NotDetected)
[2022-07-27 13:54] LABS: Troponin I < 0.01 ng/ml (0.00-0.034)
[2022-07-27 14:24] LABS: Free T4 (Free Thyroxine) 1.51 ng/dl (0.78-2.19)
[2022-07-27 14:55] LABS: D-Dimer 1.17 ug/mL (0.0-0.5)
--- NOTE | 2022-07-27 14:56 | PC.NURSE ---
PT ARRIVED TO FLOOR VIA WHEELCHAIR @13:00
[2022-07-27 16:12] LABS: NT Pro Brain Natriuretic Pep. 245 pg/mL (0-125)
--- NOTE | 2022-07-27 18:21 | PC.NURSE ---
pt has remained on room air since arriving to floor, O2 sats 94-98%, SBP 114-127, HR 108 on arrival to floor, 80-99 since that time, no complaints of pain, has complained of dry cough
--- NOTE | 2022-07-27 20:00 | PC.NURSE ---
Rounded on pt at this time. Pt was in bathroom. at bedside states no needs at this time.
[2022-07-28] VITALS (10 sets, daily range): BP systolic 83–110; BP diastolic 62–75; PULSE 70–93; RESP 16–18; TEMP 36.6–37; O2SAT 95–98; BMI 35.2
[2022-07-28 08:42] LABS: Chloride 104 mmol/L (98-107); Potassium 3.9 mmoL/L (3.5-5.1); Sodium 138 mmol/L (136-145)
[2022-07-28 08:44] LABS: Basophils # 0.1 K/mm3 (0-0.2); Basophils % 1.2 % (0.1-2.0); Eosinophils # 0.3 K/mm3 (0.0-0.4); Eosinophils % 3.1 % (0.1-12.0); Hematocrit 42.2 % (42.0-52.0); Lymphocytes # 2.2 K/mm3 (0.7-4.5); Mean Corpuscular Hemoglobin 31.8 pg (27.0-31.2); Mean Corpuscular Volume 96.2 fl (80-94); Mean Platelet Volume 11.3 fl (7.4-10.4); Monocytes # 0.4 K/mm3 (0.1-1.0); Monocytes % 5.3 % (1.7-9.3); Neutrophils # 5.3 K/mm3 (1.8-7.8); Neutrophils % 64.4 % (37.0-80.0); Platelet Count 191 K/mm3 (142-424); Red Blood Count 4.38 M/mm3 (4.60-6.20); Red Cell Distribution Width 13.6 % (11.5-17.5); White Blood Count 8.3 K/mm3 (4.8-10.8)
[2022-07-28 08:45] LABS: Alanine Aminotransferase 36 U/L (12-78); Albumin Level 4.4 g/dl (3.5-5.0); Albumin/Globulin Ratio 1.5 (1.1-1.8); Alkaline Phosphatase 170 U/L (38-126); Anion Gap 14.9 mEq/L (5-15); Aspartate Amino Transferase 32 U/L (17-59); Bilirubin,Total 0.9 mg/dl (0.2-1.3); Blood Urea Nitrogen 35 mg/dl (9-20); Calcium 9.4 mg/dl (8.4-10.2); Carbon Dioxide 23 mmol/L (22.0-30.0); Creatinine Clearance Estimated 77 mL/min (50-200); Estimated Glomerular Filt Rate 46 ml/min (>60); GFR (African American) 56 ML/MIN (>60); Glucose 108 mg/dl (74-100); Total Protein,Serum 7.4 g/dl (6.3-8.2)
--- NOTE | 2022-07-28 11:25 | EXP.ACUTE.PN ---
Subjective *Date: 07/28/22 *Time: 11:25 Interval history: Subjective and met in shortness of breath this morning per patient's report. Slight improvement in cough. No nausea, chest pain, confusion, headache, diarrhea. Cough nonproductive. Stable on room air. Blood pressure still soft this morning. Heart rate better controlled in the 80s after receiving metoprolol last night. Labs showing improvement in creatinine. Tolerating p.o. intake. Medical Exam Vital signs and Labs for Last 24 Hours: Vital Signs Temp Pulse Pulse Resp BP Pulse Ox 07/28/22 11:08 98.6 F 87 17 110/62 95 07/28/22 08:00 93 H 07/28/22 07:23 97.9 F 85 17 91/66 L 98 07/28/22 04:00 70 07/28/22 03:27 98.0 F 86 16 83/63 L 96 07/28/22 00:00 70 07/27/22 23:55 98.0 F 95 H 18 108/67 L 94 L 07/27/22 19:46 83 07/27/22 19:38 97.6 F 82 18 115/70 97 07/27/22 18:00 82 17 114/68 94 L 07/27/22 17:00 87 18 122/83 95 07/27/22 16:00 80 18 117/85 98 07/27/22 15:00 99 H 20 127/92 H 97 07/27/22 16:00 82 07/27/22 16:00 97.9 F 07/27/22 13:10 117 H 07/27/22 14:26 108 H 97 07/27/22 13:19 97.9 F 108 H 20 126/89 97 Intake and Output 07/27/22 07/28/22 07/28/22 23:59 07:59 15:59 Intake Total 1120 / 1120 120 / 120 Output Total 0 / 0 0 / 0 Balance 1120 / 1120 120 / 120 0 / 120 Intake: Intake, Oral Amount 120 / 120 120 / 120 Intake, Total IV Amount 1000 / 1000 Ringers Solution,Lactated 1,000 1000 / 1000 ml @ 250 mls/hr IV .Q4H [facility] Rx #:[id number] Output: Output, Urine Amount 0 / 0 0 / 0 Other: Number of Unmeasured Voids 1 1 Weight 118.132 kg Patient Weight 07/28/22 23:59 Weight 118.132 kg Laboratory Results - last 24 hr 07/27/22 13:15: Chlamy pneumoniae PCR Not detected, Adenovirus (PCR) Not detected, B. pertussis DNA (PCR) Not detected, Coronavirus OC43 (PCR) Not detected, Coronavirus HKU1 (PCR) Not detected, Coronavirus 229E (PCR) Not detected, SARS-CoV-2 (PCR) Not detected, Coronavirus NL63 (PCR) Not detected, Human Metapneumovir PCR Not detected, Influenza A (H1) PCR Not detected, Influ A (H1N1/09) PCR Not detected, Influenza A (H3) PCR Not detected, Influenza Type A (PCR) Not detected, Influenza Type B (PCR) Not detected, M. pneumoniae (PCR) Not detected, Parainfluenza 1 (PCR) Not detected, Parainfluenza 2 (PCR) Not detected, Parainfluenza 3 (PCR) Not detected, Parainfluenza 4 (PCR) Not detected, RSV (PCR) Not detected, Entero/Rhino (PCR) Not detected 07/27/22 13:18: WBC 11.7 H, RBC 4.92, Hgb 16.0, Hct 48.2, MCV 98.0 H, MCH 32.5 H, MCHC 33.1, RDW 13.6, Plt Count 209, MPV 10.5 H, Neut % (Auto) 77.2, Lymph % (Auto) 13.9, [place] % (Auto) 5.8, Eos % (Auto) 2.5, Baso % (Auto) 0.5, Neut # (Auto) 9.0 H, Lymph # (Auto) 1.6, [place] # (Auto) 0.7, Eos # (Auto) 0.3, Baso # (Auto) 0.1 07/27/22 13:18: PT 11.4, INR 1.06 07/27/22 13:18: Sodium 139, Potassium 4.4, Chloride 101, Carbon Dioxide 19 L, Anion Gap 23.4 H, BUN 39 H, Creatinine 2.00 H, Estimated Creat Clear 56, Estimated GFR 33 L, Est GFR ( Amer) 40 L, Glucose 144 H, Calcium 10.3 H, Magnesium 2.2, Total Bilirubin 1.2, AST 44, ALT 57, Alkaline Phosphatase 226 H, Total Protein 9.0 H D, Albumin 5.2 H, Globulin 3.8 H, Albumin/Globulin Ratio 1.4, TSH 5.60 H 07/27/22 13:18: Free T4 1.51 07/27/22 13:18: Troponin I < 0.01 07/27/22 13:18: D-Dimer 1.17 H 07/27/22 13:18: NT-Pro-B Natriuret Pep 245 H 07/28/22 08:20: WBC 8.3 D, RBC 4.38 L, Hgb 14.0 L D, Hct 42.2, MCV 96.2 H, MCH 31.8 H, MCHC 33.0, RDW 13.6, Plt Count 191, MPV 11.3 H, Neut % (Auto) 64.4, Lymph % (Auto) 26.0, [place] % (Auto) 5.3, Eos % (Auto) 3.1, Baso % (Auto) 1.2, Neut # (Auto) 5.3, Lymph # (Auto) 2.2, [place] # (Auto) 0.4, Eos # (Auto) 0.3, Baso # (Auto) 0.1 07/28/22 08:20: Sodium 138, Potassium 3.9, Chloride 104, Carbon Dioxide 23, Anion Gap 14.9, BUN 35 H, Creatinine 1.50 H D, Estimated Creat Clear 77, Estimated GFR 46
[2022-07-29] VITALS: BP 109/58; PULSE 70; PULSE 80; RESP 17; TEMP 37; O2SAT 98
[2022-07-29 03:37] VITALS: BP 121/80; PULSE 72; RESP 18; TEMP 36.7; O2SAT 96
[2022-07-29 03:46] VITALS: BMI 34.3
[2022-07-29 04:00] VITALS: PULSE 63
--- NOTE | 2022-07-29 05:37 | PC.NURSE ---
pt has rested well through the night. no compaints. a&ox4. stable on room air. VSS. LR@125.
--- NOTE | 2022-07-29 07:19 | EXP.DC.SUM ---
General Admission date:: 07/27/22 Discharge date: 07/29/22 HPI HPI HPI: Mr. Stephen hidalgo 72-year-old gentleman who initially presented to cardiology office today with complaint of worsening shortness of breath for the past few days. He also has been having lower blood pressure for the past 2 to 3 days for which his blood pressure regimen was held at home. Of note, had a heart cath on 07/16 with drug-eluting stents to the proximal LAD and ostial left main. Patient denies chest pain but has been having a persistent dry cough for over a week now. Denies nausea, vomiting, diarrhea, confusion. Appears uncomfortable. presents with him today. Reports that blood pressures have been running low at home, systolics in the 100-110s. Additionally he is noted a fast heart rate for the past few days. Out of concern for possible worsening heart failure, respiratory infection, PE, cardiology consulted medicine for admission. Patient directly admitted to the hospital. On evaluation after arriving to the floor, patient is noted to have dry cough, and appear dyspneic. He is in sinus tach with a rate of approximately 115. He denies any lower extremity edema, orthopnea, bruising or bleeding. Hospital Course Hospital Course Hospital Course: 72-year-old male with recent heart cath 11 days ago, presents with worsening shortness of breath and dry cough.? Accompanied by tachycardia and hypotension.? Admitted for work-up, initial findings on labs with RODRIGO and elevated D-dimer.? Further work-up pending.? Problems addressed as follows: Tachycardia CAD Status post left heart cath Hypertension HFpEF -Cardiology consulted, appreciate their recommendations.? Echo obtained showing preserved ejection fraction of 55%. Inconclusive diastolic parameters. CTA was negative for PE. No pneumonia or concern for infection on admission. Rehydrated patient due to RODRIGO. Held his diuretics and irbesartan. Resumed metoprolol when blood pressure improved. Suspect shortness of breath secondary to medication side effect. Discontinued his Brilinta, transitioned to Plavix with a 600 mg load followed by 75 mg daily. Shortness of breath improving on day of discharge. Plan to continue aspirin, metoprolol. Hold HCTZ, Lasix, irbesartan. -Patient is close follow-up with cardiology on Saturday of this week. Establishing with PT on for cardiac rehab. Keep follow-up appointments for further management. Overall clinically improved meeting criteria for discharge home. RODRIGO -Noted on initial labs with creatinine of 2.0. Improved with fluid hydration. Return to baseline at 1.1 on day of discharge. Given his RODRIGO, normotensive blood pressure, held ARB at discharge. Has close follow-up with cardiology, recommend reevaluation at that time. Cough Dyspnea -Negative for viral URI, no pneumonia on imaging, no PE, Low concern for CHF exacerbation.? At this time suspect cough and dyspnea is medication side effect from Brilinta. -Comprehensive respiratory panel obtained, negative for all analytes -Oxygen saturations appropriate at this time on room air, goal saturation greater 90%, will supplement with nasal cannula oxygen if needed Neuropathy: Patient no longer taking gabapentin. Pain stable. BPH: Continue home tamsulosin Gout: Continue home allopurinol Hyperlipidemia: Continue statin, goal LDL less than 55 Exam Data for Last 24 hours Vital signs and Labs for Last 24 Hours: Temp Pulse Resp BP Pulse Ox 98.0 F 63 18 121/80 96 07/29/22 03:37 07/29/22 04:00 07/29/22 03:37 07/29/22 03:37 07/29/22 03:37 Laboratory Results - last 24 hr 07/28/22 08:20: WBC 8.3 D, RBC 4.38 L, Hgb 14.0 L D, Hct 42.2, MCV 96.2 H, MCH 31.8 H, MCHC 33.0, RDW 13.6, Plt Count 191, MPV 11.3 H, Neut % (Auto) 64.4, Lymph % (Auto) 26.0, [place] % (Auto) 5.3, Eos % (Auto) 3.1, Baso % (Auto) 1.2, Neut # (Auto) 5.3, Lymph # (Auto) 2.2, [place] # (Auto) 0.4, Eos # (Auto) 0.3, Baso # (Auto) 0.1
[2022-07-29 07:27] VITALS: BP 107/76; PULSE 73; RESP 17; TEMP 36.6; O2SAT 95
[2022-07-29 07:42] LABS: Alanine Aminotransferase 119 U/L (12-78); Albumin Level 3.5 g/dl (3.5-5.0); Albumin/Globulin Ratio 1.4 (1.1-1.8); Alkaline Phosphatase 180 U/L (38-126); Anion Gap 11.6 mEq/L (5-15); Aspartate Amino Transferase 111 U/L (17-59); Bilirubin,Total 0.9 mg/dl (0.2-1.3); Blood Urea Nitrogen 24 mg/dl (9-20); Calcium 8.4 mg/dl (8.4-10.2); Carbon Dioxide 23 mmol/L (22.0-30.0); Chloride 105 mmol/L (98-107); Creatinine Clearance Estimated 102 mL/min (50-200); Estimated Glomerular Filt Rate 66 ml/min (>60); GFR (African American) 80 ML/MIN (>60); Globulin 2.5 g/dL (1.3-3.2); Glucose 94 mg/dl (74-100); Magnesium 1.7 mg/dl (1.6-2.3); Potassium 3.6 mmoL/L (3.5-5.1); Sodium 136 mmol/L (136-145)
[2022-07-29 08:00] VITALS: PULSE 73
[2022-07-29 08:01] LABS: Basophils % 0.3 % (0.1-2.0); Eosinophils # 0.3 K/mm3 (0.0-0.4); Hematocrit 35.8 % (42.0-52.0); Lymphocytes # 1.1 K/mm3 (0.7-4.5); Lymphocytes % 16.1 % (10-50); Mean Corpuscular HGB Conc 33.7 g/dL (31.8-35.4); Mean Corpuscular Hemoglobin 32.3 pg (27.0-31.2); Mean Platelet Volume 11.5 fl (7.4-10.4); Monocytes # 0.3 K/mm3 (0.1-1.0); Monocytes % 4.5 % (1.7-9.3); Neutrophils # 5.3 K/mm3 (1.8-7.8); Neutrophils % 75.2 % (37.0-80.0); Platelet Count 162 K/mm3 (142-424); Red Blood Count 3.73 M/mm3 (4.60-6.20); Red Cell Distribution Width 13.5 % (11.5-17.5)
[2022-07-29 08:02] LABS: Hemoglobin 12.1 g/dL (14.1-18.0)
--- NOTE | 2022-07-29 10:41 | HMH.PTEV ---
Physical Therapy Evaluation Rehab PT IP Evaluation Start: 07/28/22 19:22 Freq: ONCE Status: Active Protocol: Document 07/29/22 10:38 VANESSA (Rec: 07/29/22 10:41 VANESSA [id number]) Subjective/History History History 72 yowm adm to [facility] with a-fib and SOA. He reports feeling much better this am. He lives with spouse, 1 step to enter the home, and uses a cane for ambulation at baseline. Subjective Subjective Pt reports he is mildly SOA, but much better overall. Rehab PT IP Eval Objective Appearance Patient Behavior Appropriate Patient Orientation Person,Place,Time Difficulty following instructions none Speech Pattern Clear Ambulation Patient Able to Ambulate Yes Ambulation Observation IP General Gait Pattern Observation No Deviations/Normal Ambulation Distance (feet) 30 Ambulation Assistive Device Straight Cane Ambulation Ability Independent Balance Ability to Arise Able, uses arms to help Sitting Balance Steady, safe Standing Balance Steady, wide stance Dynamic Sitting Balance Ability Good Dynamic Standing Balance Ability Good Transfers Bed Transfer Ability Independent Chair Transfer Ability Independent Sit to Stand Bed Transfer Ability Independent Sit to Stand Chair Transfer Ability Independent ROM All Extremities PT ROM Status WFL MMT All Extremities PT MMT WFL Rehab PT IP prob,goals,plan Problems Date of Evaluation: 07/29/22 Discharge Plan PT Discharge Plan Pt is at baseline for all mobility and is appropriate to return home once medically stable. He is already scheduled for outpatient cardiac rehab in ~ 2 days. G -code Required No Eval Complexity Eval Charge Codes 93791 - Moderate Complexity PHYSICIAN CERTIFICATION: I certify the specified therapy services for Milo Mitchell are required, authorized, and reviewed every 30 days.
--- NOTE | 2022-07-30 14:37 | CARE MANAGER ---
Called and spoke with Mrs Mitchell, patient's spouse. She stated that patient is doing a little bit better and today. Medication prescribed at discharge has been picked up from pharmacy and started by patient. Per discharge f/u appts- patient was to be seen by cardiology tomorrow. was unsure of time, when I called to verify he was not on the schedule, so appt was made for tomorrow @ 1110. now aware of appt. No other known needs at time of call.
== END 2022-07-29 11:05 | disposition home or self-care (01) ==
PROVIDERS: Admitting Provider Internal Medicine Adolescent Medicine; PCP Family Medicine; Visit Provider Internal Medicine Adolescent Medicine
DX: I50.32 Chronic diastolic (congestive) heart failure (principal); E78.2 Mixed hyperlipidemia; I25.10 Atherosclerotic heart disease of native coronary artery without angina pectoris; N17.9 Acute kidney failure, unspecified; I11.0 Hypertensive heart disease with heart failure; Z95.5 Presence of coronary angioplasty implant and graft; Z79.899 Other long term (current) drug therapy
CPT/HCPCS: G0378; G0379; 36415; 71275; 80053; 83735; 83880; 84439; 84443; 84484; 85025; 85378; 85610; 87581; 87632; 87798; 93306; 97162; C9803; Q9967; U0003; U0005

== ENCOUNTER 2024-06-01 10:00 | Outpatient (CLI) | payer MEDICARE, SELFPAY ==
[2024-06-01 10:31] LABS: Basophils # 0.1 K/mm3 (0-0.2); Basophils % 0.7 % (0.1-2.0); Eosinophils # 0.2 K/mm3 (0.0-0.4); Hematocrit 38.6 % (42.0-52.0); Hemoglobin 13.2 g/dL (14.1-18.0); Lymphocytes # 1.8 K/mm3 (0.7-4.5); Lymphocytes % 25.8 % (10-50); Mean Corpuscular HGB Conc 34.2 g/dL (31.8-35.4); Mean Corpuscular Hemoglobin 32.8 pg (27.0-31.2); Mean Corpuscular Volume 95.9 fl (80-94); Mean Platelet Volume 10.8 fl (7.4-10.4); Monocytes # 0.4 K/mm3 (0.1-1.0); Monocytes % 6.2 % (1.7-9.3); Neutrophils # 4.5 K/mm3 (1.8-7.8); Neutrophils % 64.4 % (37.0-80.0); Platelet Count 132 K/mm3 (142-424); Red Blood Count 4.02 M/mm3 (4.60-6.20)
[2024-06-01 11:34] LABS: Magnesium 1.9 mg/dl (1.6-2.3)
[2024-06-01 11:48] LABS: Free T4 (Free Thyroxine) 1.29 ng/dl (0.78-2.19)
[2024-06-01 11:50] LABS: Alanine Aminotransferase 19 U/L (12-78); Alkaline Phosphatase 50 U/L (38-126); Anion Gap 12.7 mEq/L (5-15); Aspartate Amino Transferase 30 U/L (17-59); Bilirubin,Direct 0.4 mg/dl (0.0-0.4); Bilirubin,Total 0.4 mg/dl (0.2-1.3); Blood Urea Nitrogen 20 mg/dl (9-20); Calcium 9.5 mg/dl (8.4-10.2); Carbon Dioxide 28 mmol/L (22.0-30.0); Chloride 102 mmol/L (98-107); Chol/HDL Ratio 3.3 (1-3.5); Cholesterol 106 mg/dl (140-200); Estimated Glomerular Filt Rate 66 ml/min (>60); GFR (African American) 80 ML/MIN (>60); Glucose 91 mg/dl (74-100); HDL Cholesterol 32 mg/dl (40-60); Potassium 3.7 mmoL/L (3.5-5.1); Sodium 139 mmol/L (136-145); Total Protein,Serum 6.1 g/dl (6.3-8.2); Triglycerides 141 mg/dl (30-150); VLDL Cholesterol 28 mg/dL (0-40)
[2024-06-01 12:01] LABS: Direct LDL Cholesterol 55.04 mg/dL (100-129)
== END 2024-06-01 23:59 | disposition home or self-care (01) ==
LOC: LAB 10:01
PROVIDERS: Nurse Practitioner Family; PCP Nurse Practitioner; Visit Provider Nurse Practitioner
DX: E78.5 Hyperlipidemia, unspecified (principal); I25.10 Atherosclerotic heart disease of native coronary artery without angina pectoris; R06.09 Other forms of dyspnea; I11.0 Hypertensive heart disease with heart failure; I50.32 Chronic diastolic (congestive) heart failure; I71.40 Abdominal aortic aneurysm, without rupture, unspecified; E78.2 Mixed hyperlipidemia; R00.0 Tachycardia, unspecified; I25.118 Atherosclerotic heart disease of native coronary artery with other forms of angina pectoris
CPT/HCPCS: 36415; 80048; 80061; 80076; 83735; 84439; 84443; 85025

== ENCOUNTER 2024-06-11 13:01 | Outpatient (CLI) | payer MEDICARE, SELFPAY ==
--- NOTE | 2024-06-11 13:14 | CA_ITS ---
APPROVED REPORT EXAM: Limited 2D Echocardiogram Agricultural Technician: Libby Tapia CRT Ht: 6 ft 0 in Wt: 187lbs BSA: 2.07 BP: 157/92 mmHg Indications: HTN, HLD, CAD, CHF, SOB TDE, UNABLE TO VISUALIZE RIGHT SIDE OF HEART, TDS. PT HAS VERY POOR U/S WINDOWS. SCANNED BY 2 TECHS M-Mode Dimensions LA Diam 3.93 cm (1.9-4.0) LV Diastology E Decel Time 250 (160-240 msec) E/A Ratio 0.53 MED A' 8.30 cm/s LAT A' 10.50 cm/s Mitral Valve MV E Max Chidi. 47.0 (40-130 cm/s) MV A Velocity 87.0 (40-130 cm/s) E/A Ratio 0.53 MV PHT 73.0 ms Pulmonary Valve PV Peak Velocity 128.0 (50-150 cm/s) Other Information Study Quality: Technically Difficult. Technically limited study due to body habitus. Conclusion Technically difficult study due to poor acoustic windows. Technically limited with limited images. The left ventricle is normal in size. There is increased LV wall thickness. There is normal global LV systolic function. There is no obvious regional wall motion abnormalities noted. LVEF is 60%. Mild mitral annular calcification. The mitral valve leaflets are mildly thickened. No significant mitral stenosis or regurgitation. No significant aortic stenosis or regurgitation. Of note, the right ventricle/atrium, as well as the right sided valves, are not well-visualized. Electronically signed by : Diane Goddard MD 06/11/2024 23:23:51
== END 2024-06-11 23:59 | disposition home or self-care (01) ==
LOC: RT 13:05
PROVIDERS: PCP Nurse Practitioner; Visit Provider Nurse Practitioner
DX: I11.0 Hypertensive heart disease with heart failure (principal); I25.10 Atherosclerotic heart disease of native coronary artery without angina pectoris; I50.32 Chronic diastolic (congestive) heart failure; R06.09 Other forms of dyspnea; E78.2 Mixed hyperlipidemia; I71.40 Abdominal aortic aneurysm, without rupture, unspecified
CPT/HCPCS: 93306; 93308